=== PATIENT | female | born 1975 | race Caucasian/White ===

== ENCOUNTER 2017-01-01 18:25 | Emergency (ER) | payer OTHER ==
[~2017-01-01] VITALS: Ht 162.6 cm; Wt 75.0 kg
[~2017-01-01 18:25] MED LIST: ALBU8.5H2 INHALATION; ASCO250T7 PO; ASPI325T32 PO; CALC-51 PO; CHOL200025 PO; IBUP200C PO; LOV80 SUBQ; MAGN250T37 PO; THYR48.7 PO; WARF5TAB PO
[2017-01-01 18:30] VITALS: BP 121/67; PULSE 101; RESP 18; O2SAT 97
[2017-01-01 19:21] LABS: BASOPHILS % (AUTO) 0.3 % (0-3); EOSINOPHILS % (AUTO) 1.6 % (0-5); MONOCYTES % (AUTO) 7.3 % (4-12); Mean Corpuscular Hemoglobin 31.4 pg (27.0-35.0); NEUTROPHILS % (AUTO) 55.5 % (40-74); Platelet Count 229 bil/L (150-400)
[2017-01-01 19:39] LABS: INR 1.06 ratio
[2017-01-01 19:46] LABS: TROPONIN T < 0.010 ug/L (0.0-0.011)
--- NOTE | 2017-01-01 20:02 | ED.REPORT ---
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 The pt also complains of chills, chest pain and increased shortness of breath today, though the chest pain is baseline for the pt and she does not believe that it is related to her left leg pain. Nursing Notes Stated Complaint: RETURN- BLOODCLOT DVT INCREASED LEG PAIN Chief Complaint: Extremity Trauma Nursing Notes Reviewed: Yes Allergies: Coded Allergies: No Known Allergies (Unverified , 12/23/16) Scheduled Ascorbic Acid (Vitamin C) 250 Mg Tab.chew 500 MG PO QAM Calcium Carbonate/Vitamin D3 (Calcium 500 + Vit D 400 Tablet) 1 Each Tablet 1 EACH PO DAILY Cholecalciferol (Vitamin D3) (Vitamin D3) 2,000 Unit Tablet 2,000 UNIT PO QAM Enoxaparin (Lovenox) 80 Mg/0.8 Ml Syringe 80 MG SUBQ Q12H Magnesium Oxide (Magnesium Oxide) 250 Mg Tablet 250 MG PO DAILY Thyroid,Pork (Nature-Throid) 48.75 Mg Tablet 50 MG PO QAM Warfarin Sodium (Coumadin) 5 Mg Tablet 5 MG PO DAILY Scheduled PRN Albuterol HFA (Proair HFA) 8.5 Gm Hfa.aer.ad 2 PUFFS INHALATION Q4H PRN PRN For Shortness of Breath Aspirin (Aspirin) 325 Mg Tablet 325 MG PO DAILY PRN PRN Headache Ibuprofen (Ibuprofen) 200 Mg Capsule 200-400 MG PO Q6H PRN PRN Headache General Time Seen by MD: 20:01 Chief Complaint Other (Left leg pain) Hx Obtained From: Patient Arrived By: Walk-in Sudden in Onset?: No Symptom Duration: Since onset Recent Healthcare: Recent doctor visit Similar Sx Previous: No Past Medical History Past Medical History Ulcer Asthma Post surgical DVT PTSD Past Surgical History hysteroscopy D&C x3 Reports: Hysterectomy Smoking History Current Every Day Smoker Social History Other Social History: Good social support Review of Systems Full Review of Systems Constitutional: Reports: Chills Respiratory: Reports: Shortness of breath, Denies: Non-productive cough Cardiovascular: Reports: Chest pain GI: Denies: Abdominal pain, Vomiting Musculoskeletal: Reports: Extremity pain, Denies: Back pain, Neck pain Skin: Denies Rash Complete sys rev & neg: except as marked. Physical Exam Vital Signs Vital Signs Date Time Temp Pulse Resp B/P Pulse Ox O2 Delivery O2 Flow Rate FiO2 01/01/17 22:23 37.1 78 18 132/78 98 Room Air 01/01/17 18:30 37.4 101 18 121/67 97 Room Air Initial VS: Reviewed General/Constitutional: Awake, Alert Head / Eyes: Atraumatic, Normocephalic, PERRL, EOMI ENT: Atraumatic, Airway patent, Mucous membranes moist Neck: Atraumatic, Supple, Full range of motion Respiratory / Chest: Atraumatic, Breath sounds NL, Breath sounds = bilat, No respiratory distress Cardiovascular: Heart rate NL, Regular rhythm, Heart sounds NL strong pulses Abdomen: Atraumatic, Soft, Non-tender Back: Atraumatic, Full range of motion Upper Extremities Upper Extremity / MS: Atraumatic, Full range of motion Lower Extremity / Pelvis / MS: Atraumatic, Full range of motion Skin: Atraumatic, Color NL, No rash, Warm, Dry skin well-perfused Neurologic: Oriented X3, Speech NL, No motor deficits, No sensory deficits Psychiatric: Affect NL, Mood NL Interpretation & Diagnostics Interpretation & Diagnostics: CT Angriography Chest PE: IMPRESSION: No pulmonary embolus. Dictated by: Trang Robin MD, PhD on 01/01/2017 at 21:09 Approved by: Trang Robin MD, PhD on 01/01/2017 at 21:13 Lab Results Interpretation Result Diagram: 01/01/17191301/01/171913 Test 01/01/17 19:14 White Blood Count 6.2th/mm3 (3.8-10.1) Red Blood Count 4.46mil/mm3 (3.90-5.20) Hemoglobin 14.0g/dL (12.0-15.6) Hematocrit 42.8% (35.0-46.0) Mean Corpuscular Volume 96.0fL (81-100) Mean Corpuscular Hemoglobin 31.4pg (27.0-35.0) Mean Corpuscular Hemoglobin Concent 32.7% (32.0-37.0) Red Cell Distribution Width 12.0% (12.3-15.4) Platelet Count 229bil/L (150-400) Neutrophils (%) (Auto) 55.5% (40-74) Lymphocytes (%) (Auto) 35.1% (14-46) Monocytes (%) (Auto) 7.3% (4-12) Eosinophils (%) (Auto) 1.6% (0-5) Basophils (%) (Auto) 0.3% (0-3) Prothrombin Time 11.4sec (8.1-12.5) Prothromb Time International Ratio 1.06ratio D-Dimer < 0.50mg/L FEU (<0.50) Sodium Level 141mEq/L (134-144) Potassium Level 4.0mEq/L (3.5-5.2) Chloride Level 102mEq/L (97-108) Carbon Dioxide Level 21mmol/L (18-29) Blood Urea Nitrogen 7mg/dL (6-24) Creatinine 0.63mg/dL (0.57-1.00) Estimat Glomerular Filtration Rate 149mL/min (>59) Glucose Level 95mg/dL (60-99) Calcium Level 9.4mg/dL (8.5-10.1) Total Bilirubin 0.8mg/dL (0.0-1.2) Aspartate Amino Transf (AST/SGOT) 25U/L (0-50) Alanine Aminotransferase (ALT/SGPT) 57U/L (0-32) Alkaline Phosphatase 73U/L (25-150) Troponin T < 0.010ug/L (0.0-0.011) Total Protein 7.8g/dL (6.4-8.4) Albumin 4.5g/dL (3.4-5.0) Hold Brian Top Tube Received (Received) Pulse Oximetry Interpretation Pulse Oximetry Interpretation: 97% on room air Pulse Oximetry: Pulse Ox normal Re-Eval/Medical Decision Med Decision/Clinical Course 41-year-old female with a history of DVT presents with dyspnea. She also has this feeling of chills. She has been on Lovenox and warfarin. Her INR is been very recalcitrant. CTA diagram rule out pulmonary emboli. She felt well. RI seems very unlikely. Her pain was certainly more pleuritic in nature. She has been pain free all day. She is having leg pain however the swelling seems to be improved. Negative d-dimer makes clot propagation highly unlikely. I think she denied any pain control due to the DVT. She is unable to take ibuprofen so therefore short course of hydrocodone was provided. Recommend close outpatient follow-up. Source of Hx: Old records Time of Eval: 21:08 Patient Status: Condition improved Re-Evaluation/Progress Note: Pt rechecked, who is resting comfortably. Lab results are discussed. Time of Eval: 22:01 Patient Status: Condition improved Re-Evaluation/Progress Note: Pt rechecked, who is feeling well. The diagnosis and plan for discharge are discussed. The pt understands and agrees with the plan. All questions are addressed at this time. Counseled Regarding: Diagnosis, Lab results, Need for follow-up, When/why to return to ED Discharge & Departure Primary Impression: Left leg DVT Affected thrombotic vein of extremity: unspecified lower extremity distal vein Chronicity: acute Qualified Code: I82.4Z2 - Acute embolism and thrombosis of unspecified deep veins of left distal lower extremity Disposition: Home Discharge Condition All VS Reviewed: Yes Condition: Stable Patient Instructions: Deep Venous Thrombosis (ED) Additional Instructions: The CAT scan did not show evidence of a pulmonary embolus. The blood clot screening blood test was negative. Your blood is not yet thin enough so you need to continue with the Lovenox while taking the warfarin. Your INR is 1.06. Do not stop the Lovenox until you have had a therapeutic INR for at least 48 hours. Keep her follow-up for INR testing on Friday. Take your warfarin when you get home. You are not anemic. You may take 1-2 [place] every 6 hours for the pain associated with the blood clot. Do not take any other acetaminophen products will taking this. Do not drink alcohol or drive for taking this. This is an opiate pain reliever. Uses sparingly and only for moderate to severe pain. Do not take ibuprofen due to the fact that you are on blood thinners. Return if any problems or any new or worrisome symptoms. Set up a follow-up your primary care physician as well. Call tomorrow. Referrals: OTHER,PHYSICIAN (PCP) Scribe Attestation Portions of this note were transcribed by Carlos Mojica. I, Dr. Queen personally performed the history, physical exam and medical decision-making; I reviewed and confirmed the accuracy of the information in the transcribed note. Rosalino Queen DO Jan 01, 2017 20:02 CARLOS MOJICA Jan 01, 2017 20:35
--- NOTE | 2017-01-01 21:14 | DRSVH ---
PROCEDURE: CT ANGIO CHEST PULMONARY EMBOLISM ([id number]) INDICATIONS: dvt, chest pain and short of breath TECHNIQUE: After the administration of intravenous contrast, 2 mm thick sections acquired from the pulmonary api mercedes to the posterior costophrenic angles. 3-dimensional maximum intensity projection (MIP) coronal a nd sagittal reformats were then acquired through the thorax. For radiation dose reduction, the follo wing was used: automated exposure control, adjustment of mA and/or kV according to patient size. COMPARISON: None. FINDINGS: Image quality: Excellent. Pulmonary arteries: Pulmonary arteries are normal in size, and demonstrate no intraluminal filling d efects to suggest central pulmonary embolism. Lungs and pleura: Lungs are clear. No pleural effusions or pneumothorax. Central and peripheral ai rways are patent. Mediastinum: Heart size is normal, without pericardial effusion. No mediastinal or hilar adenopathy . Thoracic aorta is normal in caliber and enhancement. Esophagus is normal in caliber, without hiat al hernia. Bones and chest wall: No suspicious bony lesions. Ribs and thoracic spine appear intact throughout. Thyroid gland is within normal limits where visualized. No axillary or supraclavicular adenopathy. Abdomen: Visualized upper abdominal solid organs appear normal in the early arterial phase of enhanc ement. IMPRESSION: No pulmonary embolus. Dictated by: Trang Robin MD, PhD on 01/01/2017 at 21:09 Approved by: Trang Robin MD, PhD on 01/01/2017 at 21:13
[2017-01-01 22:23] VITALS: BP 132/78; PULSE 78; RESP 18; O2SAT 98
[2017-01-02] MEDS ORDERED: Sodium Chloride LOK Flush 10 mL Syringe IVFLUSH SCH (00:30)
== END 2017-01-01 22:26 | disposition home or self-care (01) ==
LOC: SED 18:25
DX: I82.4Z2 Acute embolism and thrombosis of unspecified deep veins of left distal lower extremity (principal); F43.10 Post-traumatic stress disorder, unspecified; F17.200 Nicotine dependence, unspecified, uncomplicated; Z90.710 Acquired absence of both cervix and uterus; Z79.01 Long term (current) use of anticoagulants
CPT/HCPCS: 36415; 71275; 80053; 84484; 85025; 85378; 85610; 99284; Q9967